=== PATIENT | male | born 1955 | race Caucasian/White ===

== ENCOUNTER 2017-08-08 14:18 | Emergency (ER) | payer OTHER ==
[~2017-08-08] VITALS: Ht 165.1 cm; Wt 78.2 kg
[~2017-08-08 14:18] MED LIST: ASPI-650 PO; BLOOD PRESSURE; INSU100C5 INJ; INSU100I29 IJ; LISI1TAB5 PO; OMEP-110 PO
[2017-08-08] MEDS ORDERED: ONDANSETRON ODT 4 MG PO ONE (14:30)
[2017-08-08] MEDS ORDERED: SODIUM CHLORIDE 0.9% 1,000ML IVBOLUS ONE (15:00)
[2017-08-08] MEDS ORDERED: ONDANSETRON ODT 4 MG ONE (15:05)
[2017-08-08 15:07] LABS: BASOPHILS # (AUTO) 0.03 x10^3/uL (0-0.1); BASOPHILS % (AUTO) 1 % (0-1); EOSINOPHILS # (AUTO) 0.03 x10^3/uL (0-0.4); EOSINOPHILS % (AUTO) 1 % (1-7); LYMPHOCYTES # (AUTO) 1.08 x10^3/uL (1-3.4); LYMPHOCYTES % (AUTO) 35 % (22-44); MD NO; MEAN CORPUSCULAR HEMOGLOBIN 27.7 pg (27.5-34.5); MEAN CORPUSCULAR HGB CONC 33.6 g/dL (33.2-36.2); MEAN CORPUSCULAR VOLUME 82.4 fL (81-97); MEAN PLATELET VOLUME 8.2 fL (7.4-10.4); MONOCYTES # (AUTO) 0.58 x10^3/uL (0.2-0.8); MONOCYTES % (AUTO) 19 % (2-9); NEUTROPHILS # (AUTO) 1.36 x10^3/uL (1.8-6.8); NEUTROPHILS % (AUTO) 44 % (42-75); PLATELET COUNT 176 x10^3/uL (130-400); RED BLOOD COUNT 5.74 x10^6/uL (4.38-5.82); RED CELL DISTRIBUTION WIDTH 12.9 % (9.4-14.8)
[2017-08-08 15:12] LABS: MICROSCOPIC INDICATED
[2017-08-08 15:18] LABS: ALBUMIN 3.7 g/dL (3.4-5.0); ANION GAP 10 mmol/L (5-15); CALCIUM 8.4 mg/dL (8.5-10.1); CHLORIDE 102 mmol/L (98-107)
[2017-08-08 15:21] LABS: ALANINE AMINOTRANSFERASE 75 U/L (12-78); ALKALINE PHOSPHATASE 113 U/L (45-117); CREATININE 1.03 mg/dL (0.7-1.3)
[2017-08-08 15:28] LABS: CULTURE INDICATED? NO
[2017-08-08 15:47] VITALS: BP 137/77
[2017-08-08 16:34] LABS: HEMOGLOBIN A1C 12.7 % (4.2-6.3)
== END 2017-08-08 17:20 | disposition home or self-care (01) ==
LOC: ED 16:56
DX: E11.65 Type 2 diabetes mellitus with hyperglycemia (principal); R19.7 Diarrhea, unspecified; R11.2 Nausea with vomiting, unspecified; I10 Essential (primary) hypertension
CPT/HCPCS: 36415; 76700; 80053; 81001; 83036; 83690; 85025; 96360; 99285; J7030; Q0162